=== PATIENT | male | born 1950 | race Two or more races ===

== ENCOUNTER 2019-12-04 05:37 | Day surgery (SDC) | payer MEDICARE, MEDICAID ==
[2019-11-30 07:56] LABS: BASOPHILS % (AUTO) 0.4 % (0.0-2.0); EOSINOPHILS % (AUTO) 0.5 % (0.0-3.0); HEMATOCRIT 45.9 % (42.0-52.0); HEMOGLOBIN 16.1 G/DL (14.2-18.0); LYMPHOCYTES % (AUTO) 13.5 % (20.0-45.0); MEAN CORPUSCULAR VOLUME 91 FL (80-99); NEUTROPHILS % (AUTO) 73.6 % (45.0-75.0); PLATELET COUNT 293 K/UL (150-450); RED BLOOD COUNT 5.03 M/UL (4.70-6.10); RED CELL DISTRIBUTION WIDTH 11.4 % (11.6-14.8)
[2019-11-30 08:09] LABS: ANION GAP 6 mmol/L (5-15); BLOOD UREA NITROGEN 16 mg/dL (7-18); CALCIUM 8.8 MG/DL (8.5-10.1); CARBON DIOXIDE 32 MMOL/L (21-32); CHLORIDE 103 MMOL/L (98-107); CREATININE 1.1 MG/DL (0.55-1.30); POTASSIUM 3.9 MMOL/L (3.5-5.1); SODIUM 141 MMOL/L (136-145)
--- NOTE | 2019-11-30 17:28 | Opthalmology H&P ---
Ophthalmology H&P H&P Chief Complaint: decreased vision in left eye HPI Vision Affects Ability to: read, manage personal affairs HPI Narrative Blurry vision Exam Visual Acuity: OD 20/125 OS 20/160 Tension: OD 11 OS 12 Eye Exam: normal OU: external exam, palpebral fissure-width, marginal reflex distance, levator function, corneas, anterior chambers, fundus exam; findings: lens - CC/PSC OU Assessment/Plan Treatment Plan: cataract extraction w/ lens implant Goals of Treatment: improvement of vision, enhance quality of life Attestation Attestation The risks and benefits of the surgery as well as alternative procedures were explained to the patient in detail. Jim Negrete MD Nov 30, 2019 17:28
--- NOTE | 2019-11-30 17:29 | Pre-Procedure Note/Attestation ---
Pre-Procedure Note/Attestation Complete Prior to Procedure Planned Procedure: left Procedure Narrative: Cataract extraction with IOL implant left eye Indications for Procedure Pre-Operative Diagnosis: Cortical/Posterior subcapsular cataract left eye Attestation I attest that I discussed the nature of the procedure; its benefits; risks and complications; and alternatives (and the risks and benefits of such alternatives ), prior to the procedure, with the patient (or the patient's legal medical collections representative). I attest that, if there was a reasonable possibility of needing a blood transfusion, the patient (or the patient's legal medical collections representative) was given the [facility] standardized written summary, pursuant to the [place] Blood Safety Act ([place] Health and Safety Code # 1645, as amended). I attest that I re-evaluated the patient just prior to the surgery and that there has been no change in the patient's H&P, except as documented below: Jim Negrete MD Nov 30, 2019 17:29
[2019-12-04] VITALS (8 sets, daily range): BP systolic 121–146; BP diastolic 56–77
[~2019-12-04] VITALS: Ht 165.1 cm; Wt 79.4 kg
[~2019-12-04 05:37] MED LIST: OMEPRAZOLE20 M2 ORAL
[2019-12-04] MEDS: Phenylephrine 10% Opth Soln 5ml LEFT EYE SCH ×3 (06:57→07:10)
[2019-12-04] MEDS: Cyclopentolate 1% Opth Sol 2ml LEFT EYE SCH ×3 (06:57→07:10)
[2019-12-04] MEDS: Diclofenac Sod 0.1% Op Soln LEFT EYE SCH ×3 (06:57→07:10)
[2019-12-04] MEDS: Tropicamide 1% Opth 15ml Soln LEFT EYE SCH ×3 (06:57→07:10)
[2019-12-04] MEDS: Tobramycin Op Soln 0.3% 5ml LEFT EYE SCH ×3 (06:57→07:10)
[2019-12-04] MEDS ORDERED: Tetracaine 0.5% Opth 4ml Soln LEFT EYE ONE (07:00)
[2019-12-04] MEDS ORDERED: Akten 3.5% 1ml Btl LEFT EYE ONE (07:00)
[2019-12-04] MEDS ORDERED: Proparacaine 0.5% Opth Soln 15ml LEFT EYE ONE (07:00)
[2019-12-04] MEDS ORDERED: Povidone-Iodine 5% opth solution ONE (07:14)
[2019-12-04] MEDS ORDERED: BSS 15ml BTL ONE (07:14)
[2019-12-04] MEDS ORDERED: EPINEPHrine 1mg/1ml Amp ONE (07:14)
[2019-12-04] MEDS ORDERED: Lidocaine 2% MPF 5ml Vial INJ ONE (07:14)
[2019-12-04] MEDS ORDERED: Lidocaine 4% Amp 5ml ONE (07:14)
[2019-12-04] MEDS ORDERED: acetaZOLAMIDE 500mg Inj ONE (07:14)
[2019-12-04] MEDS ORDERED: Carbachol 0.01% Op Soln 1.5ml vial ONE (07:14)
[2019-12-04] MEDS ORDERED: BSS 500ml btl ONE (07:14)
[2019-12-04] MEDS ORDERED: Bupivacaine 0.75% 30ml vial INJ ONE (07:15)
[2019-12-04] MEDS ORDERED: Sodium Hyaluronate 10 mg/ml 0.85ml ONE (07:15)
[2019-12-04] MEDS ORDERED: fentaNYL 100 mcg/2 mL IV PRN (07:45)
[2019-12-04] MEDS ORDERED: DiphenhydrAMINE 50mg/ml Inj IVP PRN (07:45)
[2019-12-04] MEDS ORDERED: LR 1000ml 1,000 ML IVLG SCH (07:45)
--- NOTE | 2019-12-04 07:45 | Anethesia Preoperative Eval ---
Anesthesia Pre-op PMH/ROS General Date of Evaluation: Dec 04, 2019 Time of Evaluation: 07:43 Anesthesiologist: Kirby ASA Score: ASA 2 Mallampati Score Class I : Soft palate, uvula, fauces, pillars visible Class II: Soft palate, uvula, fauces visible Class III: Soft palate, base of uvula visible Class IV: Only hard plate visible Mallampati Classification: Class II Surgeon: Penelope Diagnosis: L eye cataract Surgical Procedure: Cataract extraction Anesthesia History: none Family History: no anesthesia problems Allergies: Coded Allergies: No Known Allergies (Unverified , 12/04/19) Medications: see eMAR Patient NPO?: Yes Past Medical History Cardiovascular: Reports: HTN - borderline; Denies: CAD, [place], valve dz, arrhythmia, other Pulmonary: Denies: asthma, COPD, [place], other Gastrointestinal/Genitourinary: Reports: GERD; Denies: CRI, ESRD, other Neurologic/Psychiatric: Denies: dementia, CVA, depression/anxiety, TIA, other Endocrine: Denies: DM, hypothyroidism, steroids, other HEENT: Denies: cataract (L), cataract (R), glaucoma, [place] (L), [place] (R), other Hematology/Immune: Denies: anemia, DVT, bleeding disorder, other Musculoskeletal/Integumentary: Reports: OA; Denies: RA, DJD, DDD, edema, other PMH Narrative: as above PSxH Narrative: None Anesthesia Pre-op Phys. Exam Physician Exam Last Vital Signs Date Time Temp Pulse Resp B/P (MAP) Pulse Ox O2 Delivery O2 Flow Rate FiO2 12/04/19 06:45 Room Air 12/04/19 06:43 98.5 68 18 146/77 95 Constitutional: NAD Neurologic: CN 2-12 intact Cardiovascular: RRR, no M/R/G Respiratory: CTA Airway Exam Mallampati Score: Class II MO: full ROM: full Teeth: missing Dentures: no upper, no lower Anesthesia Pre-op A/P Labs see chart Studies Pre-op Studies: EKG - SR Risk Assessment & Plan Assessment: ASA 2 Plan: MAC Status Change Before Surgery: Lobo Adames MD Dec 04, 2019 07:45
[2019-12-04] MEDS ORDERED: Midazolam 2mg/2ml Inj ONE (09:00)
[2019-12-04] MEDS ORDERED: prednisoLONE acetate 1% Opth Susp 1ml ONE (09:00)
[2019-12-04] MEDS ORDERED: Pilocarpine 1% Opth 15ml Soln ONE (09:00)
[2019-12-04] MEDS ORDERED: LR 1000ml ONE (09:00)
[2019-12-04] MEDS ORDERED: Polysporin Oint 15gm TOPIC ONE (09:00)
[2019-12-04] MEDS ORDERED: NS Irrig 1000ml ONE (09:00)
[2019-12-04] MEDS ORDERED: Propofol 200mg/20ml IV ONE (09:00)
[2019-12-04] MEDS ORDERED: fentaNYL 100 mcg/2 mL IV ONE (09:00)
[2019-12-04] MEDS ORDERED: Sterile Water Irrig 1000ml IRRIG ONE (09:00)
[2019-12-04] MEDS ORDERED: Dexamethasone 4mg/ml vial ONE (09:00)
--- NOTE | 2019-12-04 09:24 | Immediate Post-Op Evaluation ---
Immediate Post-Op Evalulation Immediate Post-Op Evalulation Procedure: L eye cataract extraction with IOL Date of Evaluation: Dec 04, 2019 Time of Evaluation: 09:23 IV Fluids: 300 Blood Products: none Estimated Blood Loss: none Urinary Output: none Blood Pressure Systolic: 124 Blood Pressure Diastolic: 76 Pulse Rate: 62 Respiratory Rate: 20 O2 Sat by Pulse Oximetry: 98 Temperature (Fahrenheit): 97.6 Pain Score (1-10): 1 Nausea: No Vomiting: No Complications none Patient Status: awake, patent, none Hydration Status: adequate Lobo Orr MD Dec 04, 2019 09:24
--- NOTE | 2019-12-04 12:41 | 48 Hour Post Anesthesia Eval ---
Post Anesthesia Evaluation Procedure: L eye cataract extraction with IOL Date of Evaluation: Dec 04, 2019 Time of Evaluation: 12:40 Blood Pressure Systolic: 128 0: 76 Pulse Rate: 68 Respiratory Rate: 20 Temperature (Fahrenheit): 97.6 O2 Sat by Pulse Oximetry: 98 Airway: patent Nausea: No Vomiting: No Pain Intensity: 1 Hydration Status: adequate Cardiopulmonary Status: STABLE Mental Status/LOC: patient returned to baseline Follow-up Care/Observations: n/a Post-Anesthesia Complications: none Follow-up care needed: ready to discharge Lobo Orr MD Dec 04, 2019 12:41
--- NOTE | 2019-12-04 15:00 | Pre-op HX & Phy Repo 2 SIG ---
DATE OF ADMISSION: 12/04/2019 PRESURGICAL INTERNAL MEDICINE HISTORY AND PHYSICAL DATE OF EVALUATION: 12/04/2019 REASON FOR EVALUATION: I was asked by Dr. Jim Negrete to see this 69-year-old male, who is going for elective surgery on the left eye. The patient has nuclear sclerotic cataract, left eye. Please see full Ophthalmology History and Physical by Dr. Jim Negrete. The patient was evaluated in the outpatient procedure department of [facility]. PAST MEDICAL HISTORY/REVIEW OF SYSTEMS: Denies history of chest pain, palpitation, or heart attack. No history of hypertension. Denies history of diabetes mellitus. No history of stroke or seizures. No history of respiratory problem. The patient has a history of peptic ulcer disease with GI bleeding. No hepatitis. No renal failure. No thyroid problem. No anemia. PAST SURGICAL HISTORY: Not known. FAMILY HISTORY: Father from complication of prostate cancer and mother with diabetes mellitus. ALLERGIES: Not known. PRESENT MEDICATIONS: Omeprazole 20 mg daily. SOCIAL HISTORY: The patient denied tobacco, alcohol, or street drug use. PHYSICAL EXAMINATION: GENERAL: The patient is alert, well-developed and well-nourished male in his 60s, in no acute distress. VITAL SIGNS: Blood pressure 144/77, temperature 98.6, pulse 68, and respiration 18. O2 saturation 96% on room air. SKIN: Warm and dry. No jaundice or diaphoresis. LYMPH NODES: Not enlarged. HEENT: Head is normocephalic and atraumatic. Ears, clear. No discharge. Nose, clear. No discharge. Eyes, full description per Dr. Jim Negrete. Mouth, clear and moist. No dentures. NECK: Supple. No jugular vein distention. Carotids artery +2. Trachea midline. CHEST: No deformity or asymmetry. LUNGS: Clear. No rales or rhonchi. HEART: Rate is regular. No ectopy. No murmur. No S3, S4. ABDOMEN: Soft, benign. Liver and spleen not enlarged. No rebound. No palpable mass. EXTREMITIES: No peripheral edema. No varicose vein. No calf tenderness. GENITOURINARY: No dysuria. CVA, nontender. NEUROLOGICAL: No asymmetry. No tremor. No nystagmus. DIAGNOSTIC AND LABORATORY DATA: Electrocardiogram, sinus rhythm, 78 beats per minute, left axis deviation, septal myocardial infarction old. The patient did not eat or drink from 9 p.m. yesterday. Laboratory - creatinine 1.6. IMPRESSION: 1. Nuclear sclerotic cataract, left eye. 2. Peptic ulcer disease with GI bleeding 3. 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 PLAN: Cataract extraction, left eye with intraocular lens implant per Dr. Jim Negrete. CONCLUSION: The patient is a 69-year-old male with history of peptic ulcer disease and septal RI on EKG, clinically stable and asymptomatic. The patient did not eat or drink from 9 p.m. yesterday. Vital signs stable. The patient's condition optimized for surgery. Thank you very much, Dr. Negrete, for privilege to participate in presurgical care of this interesting patient. Jovani Hoover M.D. DR: KATHLEEN JOB#: [id number] CC:
--- NOTE | 2019-12-05 15:11 | Brief Operative Note ---
Immediate Post Operative Note Operative Note Chief Complaint: Blurry vision Pre-op Diagnosis: Cortical/Posterior subcapsular cataract left eye Procedure: Cataract extraction with IOL implant left eye Post-op Diagnosis: Pseudo OS Surgeon: Jim Negrete MD Anesthesiologist: Lobo Orr MD Anesthesia: MAC Specimen: none Complications: none Condition: stable Fluids: LR Estimated Blood Loss: none Drains: none Implant(s) used?: Yes - IOL-OS Jim Negrete MD Dec 05, 2019 15:11
--- NOTE | 2019-12-05 15:16 | Operative Note - PDOC ---
Operative Note Operative Note Date of Operation/Procedure: Dec 04, 2019 Chief Complaint: Blurry vision Pre-op Diagnosis: Cortical/Posterior subcapsular cataract left eye Procedure: Cataract extraction with IOL implant left eye Post-op Diagnosis: Pseudo OS Surgeon: Jim Negrete MD Anesthesiologist: Lobo Orr MD Anesthesia: MAC Specimen: none Complications: none Condition: stable Fluids: LR Estimated Blood Loss: none Drains: none Implant(s) used?: Yes - IOL-OS Indications for Procedure Cortical/ Posterior subcapsular cataract left eye Description of Procedure This patient has been complaining visually significant cataract in the left eye with the best corrected visual acuity of 20/160 under moderate glare conditions worse. The patient complains of difficulties with glare and light sensitivity when driving at night and with performing other activities of daily living and wants to manage personal affairs with comfort and accuracy and see well enough to move with safety at home and outdoors. The risks, benefits and alternatives of the procedure were discussed with the patient in the office prior to scheduling surgery. All questions from the patient were answered after the surgical procedure was explained in detail. The risks of the procedure as explained to the patient include, but are not limited to, pain, infection, bleeding, loss of vision, retinal detachment, need for further surgery, loss of lens nucleus, double vision, etc. Alternative procedures were discussed which include, to do nothing or seek a second opinion. Informed consent for this procedure was obtained from the patient. The patient was referred to a primary care physician for a cardiopulmonary clearance prior to surgery, after proper evaluation was done patient was properly scheduled for outpatient surgery. The patient was brought to the operating room where the anesthesiologist established I.V. lines and cardiac monitoring leads. Mild intravenous sedation was administered. The patient was then prepared with a 5% solution of povidone -iodine to the conjunctival fornix and lashes, and a 5% solution of povidone- iodine to the lids and periorbital skin. The patient was then draped in the usual sterile fashion. A lid speculum was then placed in the operative eye. A keratome blade was then used to create a biplanar incision into the anterior chamber. Viscoelastics was then instilled into the anterior chamber. A capsulorrhexis was then fashioned with an utrata forceps. BSS and a cannula were then used to hydrodissect and hydro delineate the lens. Paracentesis incision was made at 3 o'clock with sharp blade. The phacoemulsification unit, after being properly adjusted and tested, was then used to emulsify the nucleus. Residual cortical material was aspirated with the irrigation and aspiration unit. Healon was then instilled into the anterior chamber. The corneal wound was then enlarged to the size of the optic with the graciela keratome blade. The intraocular lens was then inspected for right power and size and thought to be satisfactory. Then the lens was gently placed in the capsular bag. Positioning within the capsular bag was confirmed by direct visualization. Optic centration was accomplished with a Sinskey hook. Viscoelastics was removed from the anterior chamber using the irrigation and aspiration unit. The corneal wound was then tested for leaks and none were found. The lid speculum were then removed. Sponge and needle counts were correct. An eye patch and shield were placed over the operative eye. The patient was taken to the recovery room in stable condition. There were no complications. The patient tolerated the procedure well. The patient was then transferred to the ambulatory surgery unit in stable and satisfactory condition , was given detailed written instructions and asked to follow up in the office the next day. Jim Negrete MD Dec 05, 2019 15:15
== END 2019-12-04 10:05 | disposition home or self-care (01) ==
LOC: SUR 05:37
DX: H25.012 Cortical age-related cataract, left eye (principal); H25.12 Age-related nuclear cataract, left eye; K27.9 Peptic ulcer, site unspecified, unspecified as acute or chronic, without hemorrhage or perforation; I10 Essential (primary) hypertension; K21.9 Gastro-esophageal reflux disease without esophagitis; M19.90 Unspecified osteoarthritis, unspecified site
CPT/HCPCS: 36415; 66984; 80048; 85025; 85610; 85730; 93005; J0171; J1100; J2250; J2704; J3010; J3370; J7120; V2632; 94003; 94150

== ENCOUNTER 2020-04-15 06:02 | Day surgery (SDC) | payer MEDICARE, MEDICAID ==
[2020-04-09 12:18] LABS: BASOPHILS % (AUTO) 1.3 % (0.0-2.0); EOSINOPHILS % (AUTO) 2.7 % (0.0-3.0); HEMATOCRIT 51.3 % (42.0-52.0); HEMOGLOBIN 16.2 G/DL (14.2-18.0); LYMPHOCYTES % (AUTO) 24.1 % (20.0-45.0); MEAN CORPUSCULAR VOLUME 100 FL (80-99); MONOCYTES % (AUTO) 8.8 % (1.0-10.0); NEUTROPHILS % (AUTO) 63.1 % (45.0-75.0); PLATELET COUNT 258 K/UL (150-450); RED BLOOD COUNT 5.13 M/UL (4.70-6.10); RED CELL DISTRIBUTION WIDTH 12.9 % (11.6-14.8); WHITE BLOOD COUNT 5.9 K/UL (4.8-10.8)
[2020-04-09 12:24] LABS: ANION GAP 8 mmol/L (5-15); BLOOD UREA NITROGEN 14 mg/dL (7-18); CALCIUM 8.6 MG/DL (8.5-10.1); CARBON DIOXIDE 29 MMOL/L (21-32); CHLORIDE 105 MMOL/L (98-107); INR 1.1 (0.9-1.1); POTASSIUM 3.7 MMOL/L (3.5-5.1); SODIUM 142 MMOL/L (136-145)
--- NOTE | 2020-04-09 15:55 | Opthalmology H&P ---
Ophthalmology H&P H&P Chief Complaint: decreased vision in right eye HPI Vision Affects Ability to: read, manage personal affairs HPI Narrative Blurry vision Exam Visual Acuity: OD 20/125 OS 20/25-2 Tension: OD 10 OS 8 Eye Exam: normal OU: external exam, palpebral fissure-width, marginal reflex distance, levator function, corneas, anterior chambers, fundus exam; findings: lens - OD NS,CC,PSC / OS PSEUDO Assessment/Plan Treatment Plan: cataract extraction w/ lens implant Goals of Treatment: improvement of vision, enhance quality of life Attestation Attestation The risks and benefits of the surgery as well as alternative procedures were explained to the patient in detail. Jim Negrete MD Apr 09, 2020 15:54
--- NOTE | 2020-04-09 15:57 | Pre-Procedure Note/Attestation ---
Pre-Procedure Note/Attestation Complete Prior to Procedure Planned Procedure: right Procedure Narrative: Cataract extraction with IOL implant right eye Indications for Procedure Pre-Operative Diagnosis: Cortical Nuclear sclerotic cataract right eye Attestation I attest that I discussed the nature of the procedure; its benefits; risks and complications; and alternatives (and the risks and benefits of such alternatives ), prior to the procedure, with the patient (or the patient's legal appeals representative). I attest that, if there was a reasonable possibility of needing a blood transfusion, the patient (or the patient's legal appeals representative) was given the [facility] standardized written summary, pursuant to the [place] Blood Safety Act ([place] Health and Safety Code # 1645, as amended). I attest that I re-evaluated the patient just prior to the surgery and that there has been no change in the patient's H&P, except as documented below: Jim Negrete MD Apr 09, 2020 15:57
[~2020-04-15] VITALS: Ht 170.2 cm; Wt 63.5 kg
[2020-04-15] VITALS (9 sets, daily range): BP systolic 120–132; BP diastolic 60–78
[2020-04-15] MEDS: Tropicamide 1% Opth 15ml Soln RIGHT EYE SCH ×3 (06:58→07:16)
[2020-04-15] MEDS: Phenylephrine 10% Opth Soln 5ml RIGHT EYE SCH ×3 (06:59→07:17)
[2020-04-15] MEDS ORDERED: Akten 3.5% 1ml Btl RIGHT EYE ONE (07:00)
[2020-04-15] MEDS: Cyclopentolate 1% Opth Sol 2ml RIGHT EYE SCH ×3 (07:00→07:16)
[2020-04-15] MEDS ORDERED: Proparacaine 0.5% Opth Soln 15ml RIGHT EYE ONE (07:00)
[2020-04-15] MEDS ORDERED: Tetracaine 0.5% Opth 4ml Soln RIGHT EYE ONE (07:00)
[2020-04-15] MEDS ORDERED: BSS 15ml BTL ONE (07:16)
[2020-04-15] MEDS ORDERED: Povidone-Iodine 5% opth solution ONE (07:16)
[2020-04-15] MEDS ORDERED: BSS 500ml btl ONE (07:16)
[2020-04-15] MEDS ORDERED: Sodium Hyaluronate 10 mg/ml 0.85ml ONE (07:17)
[2020-04-15] MEDS ORDERED: Sterile Water Irrig 1000ml IRRIG ONE (08:30)
[2020-04-15] MEDS ORDERED: NS Irrig 1000ml ONE (08:30)
[2020-04-15] MEDS ORDERED: LR 1000ml ONE (08:30)
[2020-04-15] MEDS ORDERED: fentaNYL 100 mcg/2 mL IV ONE (08:37)
[2020-04-15] MEDS ORDERED: Midazolam 2mg/2ml Inj ONE (08:37)
[2020-04-15] MEDS ORDERED: Ciprofloxacin Opth Soln 5ml RIGHT EYE ONE (09:00)
--- NOTE | 2020-04-15 09:20 | Immediate Post-Op Evaluation ---
Immediate Post-Op Evalulation Immediate Post-Op Evalulation Procedure: cataract extraction right eye Date of Evaluation: Apr 15, 2020 Time of Evaluation: 09:19 IV Fluids: 300 Blood Pressure Systolic: 124 Blood Pressure Diastolic: 60 Pulse Rate: 54 Respiratory Rate: 14 O2 Sat by Pulse Oximetry: 98 Temperature (Fahrenheit): 97.6 Nausea: No Vomiting: No Complications none Patient Status: awake, reacts, patent Hydration Status: adequate Drug: non TarrillionFlori CRNA Apr 15, 2020 09:20
--- NOTE | 2020-04-15 09:22 | Anethesia Preoperative Eval ---
Anesthesia Pre-op PMH/ROS General Date of Evaluation: Apr 15, 2020 Time of Evaluation: 08:28 Anesthesiologist: juan a ASA Score: ASA 2 Mallampati Score Class I : Soft palate, uvula, fauces, pillars visible Class II: Soft palate, uvula, fauces visible Class III: Soft palate, base of uvula visible Class IV: Only hard plate visible Mallampati Classification: Class II Surgeon: cielo Diagnosis: cataract Surgical Procedure: cataract extraction Anesthesia History: none Family History: no anesthesia problems Allergies: Coded Allergies: No Known Allergies (Unverified , 04/09/20) Medications: see eMAR Patient NPO?: Yes NPO Date: Apr 15, 2020 NPO Time: 00:01 Past Medical History Cardiovascular: Denies: HTN, CAD, [place], valve dz, arrhythmia, other Gastrointestinal/Genitourinary: Reports: GERD; Denies: CRI, ESRD, other Neurologic/Psychiatric: Denies: dementia, CVA, depression/anxiety, TIA, other Endocrine: Denies: DM, hypothyroidism, steroids, other HEENT: Reports: cataract (R); Denies: glaucoma, [place] (L), [place] (R), other Hematology/Immune: Denies: anemia, DVT, bleeding disorder, other Musculoskeletal/Integumentary: Denies: OA, RA, DJD, DDD, edema, other PSxH Narrative: none Anesthesia Pre-op Phys. Exam Physician Exam Last Vital Signs Date Time Temp Pulse Resp B/P (MAP) Pulse Ox O2 Delivery O2 Flow Rate FiO2 04/15/20 07:17 Room Air 04/15/20 07:09 97.3 66 18 129/71 95 Constitutional: NAD Neurologic: CN 2-12 intact Cardiovascular: RRR Respiratory: CTA Gastrointestinal: S/NT/ND Airway Exam Mallampati Score: Class II MO: full Dentures: no upper, no lower Anesthesia Pre-op A/P Studies Pre-op Studies: EKG - sr Risk Assessment & Plan Plan: mac Status Change Before Surgery: No Pre-Antibiotics Drug: declined Flori Nguyen CRNA Apr 15, 2020 09:22
--- NOTE | 2020-04-15 11:39 | 48 Hour Post Anesthesia Eval ---
Post Anesthesia Evaluation Procedure: cataract extraction right eye Date of Evaluation: Apr 15, 2020 Time of Evaluation: 11:39 Blood Pressure Systolic: 132 0: 71 Pulse Rate: 56 Respiratory Rate: 14 O2 Sat by Pulse Oximetry: 98 Airway: patent Nausea: No Vomiting: No Hydration Status: adequate Cardiopulmonary Status: stable Mental Status/LOC: patient returned to baseline Post-Anesthesia Complications: none Flori Nguyen CRNA Apr 15, 2020 11:39
--- NOTE | 2020-04-15 14:57 | Brief Operative Note ---
Immediate Post Operative Note Operative Note Chief Complaint: Blurry vision Pre-op Diagnosis: Cortical Nuclear sclerotic cataract right eye Procedure: Cataract extraction with IOL implant right eye Post-op Diagnosis: Pseudophakia OD Findings: consistent w/pre-op dx studies Surgeon: Jim Negrete MD Anesthesiologist: Flori Nguyen MD Anesthesia: MAC Specimen: none Complications: none Condition: stable Fluids: LR Estimated Blood Loss: none Drains: none Implant(s) used?: Yes - IOL-OD Jim Negrete MD Apr 15, 2020 14:57
--- NOTE | 2020-04-15 15:01 | Operative Note - PDOC ---
Operative Note Operative Note Date of Operation/Procedure: Apr 15, 2020 Chief Complaint: Blurry vision Pre-op Diagnosis: Cortical Nuclear sclerotic cataract right eye Procedure: Cataract extraction with IOL implant right eye Post-op Diagnosis: Pseudophakia OD Operative Findings: consistent w/pre-op dx studies Surgeon: Jim Negrete MD Anesthesiologist: Flori Nguyen MD Anesthesia: MAC Specimen: none Complications: none Condition: stable Fluids: LR Estimated Blood Loss: none Drains: none Implant(s) used?: Yes - IOL-OD Indications for Procedure Cortical nuclear sclerotic cataract right eye Description of Procedure This patient has been complaining visually significant cataract in the right eye with the best corrected visual acuity of 20/125 under moderate glare conditions worse. The patient complains of difficulties with glare in performing activities of daily living and wants to manage personal affairs with comfort and accuracy and see well enough to move with safety at home and outdoors. The risks, benefits and alternatives of the procedure were discussed with the patient in the office prior to scheduling surgery. All questions from the patient were answered after the surgical procedure was explained in detail. The risks of the procedure as explained to the patient include, but are not limited to, pain, infection, bleeding, loss of vision, retinal detachment, need for further surgery, loss of lens nucleus, double vision, etc. Alternative procedures were discussed which include, to do nothing or seek a second opinion. Informed consent for this procedure was obtained from the patient. The patient was referred to a primary care physician for a cardiopulmonary clearance prior to surgery, after proper evaluation was done patient was properly scheduled for outpatient surgery. The patient was brought to the operating room where the anesthesiologist established I.V. lines and cardiac monitoring leads. Mild intravenous sedation was administered. The patient was then prepared with a 5% solution of povidone -iodine to the conjunctival fornix and lashes, and a 5% solution of povidone- iodine to the lids and periorbital skin. The patient was then draped in the usual sterile fashion. A lid speculum was then placed in the operative eye. A keratome blade was then used to create a biplanar incision into the anterior chamber. Viscoelastics was then instilled into the anterior chamber. A capsulorrhexis was then fashioned with an utrata forceps. The lens nucleus was hydrodissected and hydrodelineated with a G 27 Cannula. Paracentesis incision was made at 3 o'clock with sharp blade. The phacoemulsification unit, after being properly adjusted and tested, was then used to emulsify the nucleus followed by aspiration and irrigation of residual cortical material. Healon was then instilled into the anterior chamber. The corneal wound was then enlarged to the size of the optic with the graciela keratome blade. The intraocular lens was then inspected for right power and size and thought to be satisfactory. Then the lens was gently placed in the capsular bag. Positioning within the capsular bag was confirmed by direct visualization. Optic centration was accomplished with a Sinskey hook. Viscoelastics was removed from the anterior chamber using the irrigation and aspiration unit. The corneal wound was then tested for leaks and none were found. The lid speculum were then removed. Sponge and needle counts were correct. An eye patch and shield were placed over the operative eye. The patient was taken to the recovery room in stable condition. There were no complications. The patient tolerated the procedure well. The patient was then transferred to the ambulatory surgery unit in stable and satisfactory condition , was given detailed written instructions and asked to follow up in the office the next day. Jim Negrete MD Apr 15, 2020 15:01
== END 2020-04-15 10:20 | disposition home or self-care (01) ==
LOC: SUR 06:02
DX: H25.11 Age-related nuclear cataract, right eye (principal); H25.011 Cortical age-related cataract, right eye; K21.9 Gastro-esophageal reflux disease without esophagitis; R00.1 Bradycardia, unspecified
CPT/HCPCS: 36415; 66984; 80048; 85025; 85610; 85730; 93005; 94003; J2250; J3010; J3370; J7120; V2632; 94150